=== PATIENT | male | born 1940 | race Asian ===

== ENCOUNTER 2016-09-27 17:37 | Inpatient (IN) | payer OTHER ==
[~2016-09-27] VITALS: Ht 162.6 cm; Wt 72.3 kg
[2016-09-27 18:41] LABS: BASOPHIL % 2.9 % (0-2); PLATELET COUNT 244 x10^3mcL (130-400); RED CELL DISTRIBUTION WIDTH 12.6 % (11.5-14.5)
[2016-09-27 18:42] LABS: microscopic required? YES; urine erythrocyte TRACE (NEGATIVE)
[2016-09-27 18:46] LABS: CALCIUM 8.5 mg/dL (8.5-10.1); CARBON DIOXIDE 23.8 mmol/L (21-32); CHLORIDE SERUM 101 mmol/L (98-107); CREATININE SERUM 1.2 mg/dL (0.7-1.3); GLUCOSE SERUM 156 mg/dL (74-106); SODIUM SERUM 135 mmol/L (136-145)
[2016-09-27 18:50] LABS: ALBUMIN 4.4 g/dL (3.4-5.0); ALKALINE PHOSPHATASE 43 U/L (46-116); ALT/SGPT 23 U/L (16-63); AMYLASE 73 U/L (25-115); AST/SGOT 19 U/L (15-37); BILIRUBIN TOTAL 0.9 mg/dL (0.20-1.00); LIPASE 93 IU/L (73-393)
[2016-09-27] MEDS ORDERED: GLUCOPHAGE XR500 MG PO (20:20)
[2016-09-27] MEDS ORDERED: SYNTHROID0.112 MG PO (20:20)
[2016-09-27] MEDS ORDERED: ALLOPURINOL100 MG PO (20:20)
[2016-09-27] MEDS ORDERED: LOSARTAN POTAS100 M1 PO (20:20)
[2016-09-27] MEDS ORDERED: SIMVASTATIN20 M1 PO (20:21)
[2016-09-27] MEDS ORDERED: HYDROXYZINE10 M1 PO (20:21)
[2016-09-27] MEDS ORDERED: METOPROLOL SUCC50 M2 PO (20:21)
[2016-09-27] MEDS ORDERED: TAMSULOSIN HYD0.4 M1 PO (20:36)
[2016-09-27] MEDS ORDERED: METOPROLOL TART50 MG PO (20:37)
[2016-09-27 21:14] LABS: CHOLESTEROL/HDL RATIO 2.5
[2016-09-27 21:32] LABS: FREE T4 1.69 ng/dL (0.76-1.46); FREE THYROXINE INDEX 3.5 ug/dL (1.4-4.5); T4(THYROXINE) 9.2 ug/dL (4.7-13.3)
[2016-09-27 21:46] LABS: T3 TOTAL 0.67 ng/mL
[2016-09-27 21:58] VITALS: BP 111/60
[2016-09-27 22:10] VITALS: Ht 162.6 cm; Wt 72.3 kg
[2016-09-28 05:44] VITALS: BP 105/52
[2016-09-28 06:53] LABS: CARBON DIOXIDE 24.4 mmol/L (21-32); CHLORIDE SERUM 103 mmol/L (98-107); CREATININE SERUM 1.5 mg/dL (0.7-1.3); GLUCOSE SERUM 149 mg/dL (74-106); MAGNESIUM 1.8 mg/dL (1.8-2.4); PHOSPHOROUS 2.9 mg/dL (2.5-4.9); POTASSIUM SERUM 4.2 mmol/L (3.5-5.1); SODIUM SERUM 136 mmol/L (136-145)
[2016-09-28 07:18] LABS: PLATELET COUNT 213 x10^3mcL (130-400); RED CELL DISTRIBUTION WIDTH 12.9 % (11.5-14.5)
[2016-09-28 07:28] LABS: BASOPHIL % 0 % (0-2)
[2016-09-28 08:55] VITALS: BP 107/52
[2016-09-28 16:30] VITALS: BP 131/70
[2016-09-28 21:44] VITALS: BP 128/63
[2016-09-29 05:58] VITALS: BP 150/77
[2016-09-29 06:04] LABS: PLATELET COUNT 213 x10^3mcL (130-400); RED CELL DISTRIBUTION WIDTH 13.2 % (11.5-14.5)
[2016-09-29 06:10] LABS: ALBUMIN 3.4 g/dL (3.4-5.0); CARBON DIOXIDE 23.8 mmol/L (21-32); CHLORIDE SERUM 107 mmol/L (98-107); CREATININE SERUM 1.3 mg/dL (0.7-1.3); GLUCOSE SERUM 120 mg/dL (74-106); MAGNESIUM 1.9 mg/dL (1.8-2.4); PHOSPHOROUS 2.3 mg/dL (2.5-4.9); POTASSIUM SERUM 4.1 mmol/L (3.5-5.1); SODIUM SERUM 140 mmol/L (136-145)
[2016-09-29 06:58] LABS: BASOPHIL % 0 % (0-2)
[2016-09-29 10:00] VITALS: BP 161/70
[2016-09-29 14:00] VITALS: BP 152/73
[2016-09-29 18:59] VITALS: BP 148/74
[2016-09-29 21:24] VITALS: BP 153/79
[2016-09-30 05:24] VITALS: BP 111/81
[2016-09-30 07:14] LABS: PLATELET COUNT 248 x10^3mcL (130-400); RED CELL DISTRIBUTION WIDTH 13.3 % (11.5-14.5)
[2016-09-30 07:17] LABS: CALCIUM 8.1 mg/dL (8.5-10.1); CARBON DIOXIDE 20.2 mmol/L (21-32); CHLORIDE SERUM 111 mmol/L (98-107); CREATININE SERUM 1.2 mg/dL (0.7-1.3); GLUCOSE SERUM 176 mg/dL (74-106); PHOSPHOROUS 1.9 mg/dL (2.5-4.9); POTASSIUM SERUM 4.2 mmol/L (3.5-5.1); SODIUM SERUM 142 mmol/L (136-145)
[2016-09-30 07:20] LABS: BASOPHIL % 0 % (0-2)
[2016-09-30 09:00] VITALS: BP 162/86
[2016-09-30 14:32] VITALS: BP 163/93
[2016-09-30 16:56] VITALS: BP 167/82
[2016-09-30 18:20] VITALS: BP 153/80
[2016-09-30 22:00] VITALS: BP 167/76
[2016-10-01 05:59] VITALS: BP 179/80
[2016-10-01 07:03] VITALS: BP 153/84
[2016-10-01 07:08] LABS: BASOPHIL % 0.2 % (0-2); PLATELET COUNT 273 x10^3mcL (130-400); RED CELL DISTRIBUTION WIDTH 13.2 % (11.5-14.5)
[2016-10-01 07:23] LABS: CALCIUM 8.4 mg/dL (8.5-10.1); CARBON DIOXIDE 22.8 mmol/L (21-32); CHLORIDE SERUM 114 mmol/L (98-107); CREATININE SERUM 1.3 mg/dL (0.7-1.3); GLUCOSE SERUM 167 mg/dL (74-106); MAGNESIUM 2.3 mg/dL (1.8-2.4); PHOSPHOROUS 1.6 mg/dL (2.5-4.9); POTASSIUM SERUM 3.8 mmol/L (3.5-5.1); SODIUM SERUM 149 mmol/L (136-145)
[2016-10-01 09:50] VITALS: BP 162/81
[2016-10-01 16:20] VITALS: BP 162/70
[2016-10-01 22:00] VITALS: BP 160/81
[2016-10-02 05:04] VITALS: BP 147/64
[2016-10-02 06:28] VITALS: BP 146/63
[2016-10-02 06:54] LABS: CALCIUM 7.9 mg/dL (8.5-10.1); CARBON DIOXIDE 23.6 mmol/L (21-32); CHLORIDE SERUM 117 mmol/L (98-107); GLUCOSE SERUM 130 mg/dL (74-106); MAGNESIUM 2.1 mg/dL (1.8-2.4); PHOSPHOROUS 2.8 mg/dL (2.5-4.9); POTASSIUM SERUM 3.3 mmol/L (3.5-5.1); SODIUM SERUM 149 mmol/L (136-145)
[2016-10-02 07:08] LABS: BASOPHIL % 0.3 % (0-2); PLATELET COUNT 218 x10^3mcL (130-400); RED CELL DISTRIBUTION WIDTH 13.6 % (11.5-14.5)
[2016-10-02 09:54] VITALS: BP 147/61
[2016-10-02 17:15] VITALS: BP 121/70
[2016-10-02 21:56] VITALS: BP 108/57
[2016-10-03 06:45] VITALS: BP 151/65
[2016-10-03 06:49] LABS: CALCIUM 8.1 mg/dL (8.5-10.1); CHLORIDE SERUM 112 mmol/L (98-107); CREATININE SERUM 1.1 mg/dL (0.7-1.3); GLUCOSE SERUM 118 mg/dL (74-106); MAGNESIUM 1.7 mg/dL (1.8-2.4); PHOSPHOROUS 3.5 mg/dL (2.5-4.9); POTASSIUM SERUM 3.8 mmol/L (3.5-5.1); SODIUM SERUM 143 mmol/L (136-145)
[2016-10-03 07:06] LABS: BASOPHIL % 0.1 % (0-2); PLATELET COUNT 270 x10^3mcL (130-400); RED CELL DISTRIBUTION WIDTH 13.3 % (11.5-14.5)
[2016-10-03 07:58] VITALS: BP 154/61
[2016-10-03] MEDS ORDERED: FLA500 PO (11:59)
[2016-10-03] MEDS ORDERED: LAC PO (12:00)
[2016-10-03] MEDS ORDERED: LEVAQUIN750 MG PO (12:00)
[2016-10-03] MEDS ORDERED: NORCO 10-325 T1 EACH PO (12:01)
[2016-10-03] MEDS ORDERED: COLACE100 MG PO (12:02)
[2016-10-03 12:55] VITALS: BP 136/73
[2016-10-03 13:31] VITALS: BP 136/73
[2016-10-03] MEDS ORDERED: ZOF4 PO (13:41)
[2016-10-03 14:13] VITALS: BP 169/83
== END 2016-10-03 15:17 | disposition home or self-care (01) | DRG 225 ==
LOC: ED 17:37 → DU 20:04 → MU 09-30 13:45 → DU 10-01 05:09
PROVIDERS: Emergency Medicine; Family Medicine; Surgery; ADMIT Family Medicine
PROC: 0DTJ0ZZ Resection of Appendix, Open Approach (ICD-10-PCS; principal; 2016-09-28 10:30)
DX: K35.2 Acute appendicitis with generalized peritonitis (principal); N17.0 Acute kidney failure with tubular necrosis; E87.0 Hyperosmolality and hypernatremia; E11.9 Type 2 diabetes mellitus without complications; I10 Essential (primary) hypertension; D64.9 Anemia, unspecified; E87.1 Hypo-osmolality and hyponatremia; E03.8 Other specified hypothyroidism; E78.5 Hyperlipidemia, unspecified; M10.9 Gout, unspecified; F41.9 Anxiety disorder, unspecified; Z90.49 Acquired absence of other specified parts of digestive tract; N40.0 Benign prostatic hyperplasia without lower urinary tract symptoms; R00.0 Tachycardia, unspecified; Z79.84 Long term (current) use of oral hypoglycemic drugs; Z85.038 Personal history of other malignant neoplasm of large intestine; E83.39 Other disorders of phosphorus metabolism; E03.9 Hypothyroidism, unspecified; Z88.0 Allergy status to penicillin; Z88.6 Allergy status to analgesic agent
CPT/HCPCS: 83880; 84439; 97110-GP; 97116-GP; 97530-GP; J0330; J0696; J1580; J2060; J2405; J2704; J2710; J2765; J3010; J3475; J3480; J3490; J7030; J7620; Q0092; Q0162